=== PATIENT | female | born 1950 | race Caucasian/White ===

== ENCOUNTER → 2017-07-30 09:29 | Outpatient (CLI) | payer MEDICARE, OTHER, SELFPAY ==
--- NOTE | 2017-07-30 09:32 | RAD_ITS ---
STUDY: X-RAY - RIGHT KNEE REASON FOR EXAM: Female, 67 years old. Pain TECHNIQUE: 4 view(s) of the knee. COMPARISON: None. FINDINGS: There is demineralization of the visualized distal femur. There is demineralization of the tibia and fibula. Normal proximal tibiofibular articulation. There is severe degenerative arthrosis of the medial femorotibial compartment with severe joint space narrowing. There is mild degenerative arthrosis of the lateral femorotibial compartment. There is moderate degenerative arthrosis of the patellofemoral articulation. The soft tissue structures are unremarkable. RAD/Knee 4 or More Views IMPRESSION: Moderate to severe Degenerative arthrosis. No visualized fracture. Electronically Signed: Narda Tam MD at 17:34 EDT Tel , Service support ,
== END ==
PROVIDERS: Family Provider Family Medicine; PCP Family Medicine; Visit Provider Orthopaedic Surgery
DX: M25.561 Pain in right knee (principal)
CPT/HCPCS: 73564

== ENCOUNTER 2017-08-21 07:19 | Inpatient (IN) | payer MEDICARE, OTHER, SELFPAY ==
[2017-08-14 11:27] VITALS: BP 131/74; PULSE 69; RESP 16; TEMP 36.5; O2SAT 95; BMI 35.5
--- NOTE | 2017-08-14 11:31 | SDCEKG_ITS ---
Test Reason : Blood Pressure : / mmHG Vent. Rate : 068 BPM Atrial Rate : 068 BPM P-R Int : 122 ms QRS Dur : 070 ms QT Int : 368 ms P-R-T Axes : 047 010 024 degrees QTc Int : 391 ms Normal sinus rhythm Normal ECG Confirmed by EMILIO CHINCHILLA MD ([id number]), food editor STEPH ESTES ([id number]) on 08/16/2017 2:41:16 PM Referred By: Adan Bourne Confirmed By:EMILIO CHINCHILLA MD
[2017-08-14 12:17] LABS: Hematocrit 42.2 % (37-47); Hemoglobin 14.7 g/dl (12.0-15.0); Mean Corp Hgb Conc 34.8 g/gl (32-36); Mean Corpuscular Hgb 32.2 pg (27.0-32.0); Mean Corpuscular Volume 92.5 fL (81-99); Mean Platelet Vol. 9.8 fl (6.2-12.0); Platelet Count 233 K/mm3 (150-450); RBC Distribution Width CV 12.8 % (11.6-14.6); RBC Distribution Width SD 42.6 fl (35.1-43.9); Red Blood Count 4.56 M/mm3 (4.2-5.4); White Blood Count 5.5 K/mm3 (4.4-11.0)
[2017-08-14 12:18] LABS: Scan Indicated on CBC? Y/N NO
[2017-08-14 12:36] LABS: Prothrombin Time (Protime)PT. 13.1 SECONDS (11.7-14.9)
[2017-08-14 12:58] LABS: AST(SGOT) 20 U/L (15-37); Alanine Aminotransfer ALT/SGPT 30 U/L (13-56); Albumin, Serum 3.8 g/dL (3.2-5.0); Alkaline Phosphatase 79 U/L (45-117); Bilirubin, Direct 0.13 mg/dL (0.00-0.30); Globulin 3.7 g/dL (2.2-4.2); Protein, Total 7.5 g/dL (6.4-8.2)
[2017-08-21] VITALS (16 sets, daily range): BP systolic 106–142; BP diastolic 42–80; PULSE 77–100; RESP 16–21; TEMP 36.2–36.8; O2SAT 93–99; BMI 35.5; BMI 36.3
[2017-08-21] MEDS: oxyCODONE HCl Cr 10 MG Tablet PO ×2 (08:17→22:37)
[2017-08-21] MEDS: Celecoxib 200 MG Capsule PO (08:17)
--- NOTE | 2017-08-21 08:59 | RAD_ITS ---
STUDY: X-RAY - RIGHT KNEE REASON FOR EXAM: Female, 67 years old. Total knee replacement. TECHNIQUE: AP and lateral view(s) of the knee. COMPARISON: Comparison is made with prior study dated July 30, 2017. FINDINGS: Normal visualized distal femur. Normal visualized proximal tibia and fibula. Normal proximal tibiofibular articulation. The patient is status post total knee replacement. There is good alignment. Postoperative soft tissue changes. RAD/Knee 1 or 2 Views IMPRESSION: Total knee arthroplasty. There is good alignment. Postoperative soft tissue changes. Electronically Signed: Jose Khan MD at 14:27 EDT Tel [phone], Service support ,
--- NOTE | 2017-08-21 09:35 | KNEE_PTH ---
PATIENT: BEVERLEY LOUISE LOC: MS3 U#:[id number] AGE/SX: 67/F [place] [facility] [place]: Adan Bourne DO : 1950 BED: 1 DIS: 08/23/2017 SPEC #: [id number] RECD: 08/21/17 14:42 STATUS: RISA JESUS #: [id number] JUAN CARLOS: 08/21/17 09:[address]: Adan Bourne DEPT: SURGICAL PATHOLOGY RECD BY: Mendez Montes ENTERED: 08/21/17 14:42 SP TYPE: TOTAL KNEE OTHR DR: Dr. Anup Brooks MD Tissues: Knee, NOS Procedures: Decalcification bone/plaque Surgery Specimen Level IV HEADER OPERATION: Right total knee replacement PRE-OP DIAGNOSIS: Primary osteoarthritis of right knee, chronic pain of right knee TISSUE SUBMITTED: Right knee bone and soft tissue MICROSCOPIC DIAGNOSIS Right knee bone and soft tissue, total knee replacement: Pieces of bone with degenerative osteoarthritic changes. Fibroadipose tissue, fibroconnective tissue and reactive synovial tissue. SORAYA:alena 08/24/17 MICROSCOPIC DESCRIPTION Slides are reviewed. GROSS DESCRIPTION Received is one container designated bone and soft tissue right knee. The specimen consists of multiple fragments of sandoval-yellow bone measuring in aggregate 11 x 10 x 4 cm. Also in the specimen container are multiple fragments of yellow-white soft tissue measuring in aggregate 7 x 6.5 x 3 cm. A number of bony fragments contain articular surfaces consistent with tibial plateau and femoral condyle and displaying prominent osteophyte formation, eburnation and bone erosion. Warehouse Laborer sections are submitted in two cassettes as follows: 1 - soft tissue, 2 - bone after decalcification. / SORAYA:alena 08/21/17 TC:5 [facility]: [id number], [id number]
--- NOTE | 2017-08-21 10:03 | OP.PN_ITS ---
Immediate Post-Op Note Date of Procedure: 08/21/17 Primary Surgeon/Physician: Adan Bourne DO websphere commerce architect: Bulmaro Clinton Pre-Operative Diagnosis: Right knee osteoarthritis Post-Operative Diagnosis: Same as above Surgery/Procedure Performed:: Right total knee arthroplasty-[place] Description of Surgical Findings:: See dictation Estimated Blood Loss: 50 Specimen's removed: Bone cuts Type of Anesthesia:: General ASA Class: ASA1 Normal Healthy Patient - Admit VTE Documentation VTE Present on Admission: No VTE Mechan Device Prophylaxis: SCD's, Knee High ARANZA Hose VTE Pharm Prophylaxis ordered?: Yes
--- NOTE | 2017-08-21 10:04 | OP.PCM_ITS ---
Report of Operation Date of Procedure: 08/21/17 Pre-Operative Diagnosis: Right knee osteoarthritis Post-Operative Diagnosis: Same as above Surgery/Procedure Performed:: Right total knee arthroplasty-[place] abhijit Description of Surgical Findings:: 67-year-old female with recalcitrant right knee pain that failed nonoperative management to include NSAIDs activity modifications physical therapy and injections. Patient plain from radiograph showed tricompartmental arthrosis of the knees. Having failed conservative measures and pain with activities of daily living patient elected for operative intervention. She was counseled and consented for the aforementioned procedure. She is met in the holding area where the right lower extremity was marked and identified by the with surgeon. Patient was taken to the operating room in satisfactory condition with somewhat to place 25 patient operative procedure and limb. Patient received 900 clindamycin due to penicillin allergy and 1 g of TXA. Patient had a well- placed tourniquet the right proximal thigh. She was then prepped and draped in usual fashion. Right lower extremity was elevated Esmarch used for exsanguination and tourniquet was increased to 250 mmHg for roughly 60 minutes. Patient had a standard midline incision made 2 fingerbreadths above the patella down to the tibial tubercle with sharp dissection down to soft tissues and Bovie cautery 20 bleeding. Patient then underwent a standard medial parapatellar approach. Patient had a large return effusion. She had hypertrophic synovium to the suprasellar pouch which was mechanically resected. At that point time a standard posterior medial release was undertaken secondary to her varus knee with mild contracture. Anterior fat pad was resected. We then placed our intramedullary guide for a distal femoral cut of 10 mm again secondary to a flexion contracture. We used a 6? valgus cut. Standard cuts were performed. Then turned our attention to sizing. Patient sized to a size 5. Size 5 cutting guide was placed in standard cuts were performed without difficulty. We then turned our attention to the tibia. Tibial guide was placed using standard technique with 3? posterior slope. Appropriate mechanical axis identified and we took 2 mm off the medial side of the knee. This was done using standard technique. PCL was preserved. Leg was brought in a full extension remnant menisci were removed any soft tissue debris that were impeding identification. Then placed a 9 mm Estella. With excellent mechanical alignment full extension and stable at 0 30 and 90? of flexion with no flexion extension gaps. At that point time we then turned our attention to the patella the patella is overall thickness was roughly 22 mm. We took off 10 and the patient sized to a 38 patella button. Standard holes were then drilled. We then turned our attention back to the femur and tibia. Femoral component 5 was placed using standard technique and then a 5 tibial tray was placed with a 9 mm Estella. Appropriate rotation to the tibial component was seated and then keel punch placed after the femoral trial component had been removed. Again we had excellent mechanical alignment and stability in all ranges of motion. Trial components were then completely removed and the wound was copiously irrigated remove the excess debris. Cement was prepared on the back table and then the tibial component and femoral component was then impacted using standard technique and a 9 mm trial poly-placed while the cement cured. Patella button was also seated using standard technique. Upon curing I felt that a 9 mm CS Estella would be appropriate for this patient. Trial component was removed the wound was copiously irrigated and evaluated for any loose cement. Feeling the knee was clean we then injected with 60 cc of periarticular cocktail for postoperative pain management. We then placed a 9 mm CS Estella. Excellent mechanical alignment stability were noted. We had good patella tracking. At that point time the knee was then closed with the distal two thirds closed in 30 ? of knee flexion and the proximal extent closed in full extension. We used #1 FiberWire [id number] technique. The soft tissues were then reapproximated after the tourniquet had been let down with with 2-0 Vicryl running subicular Monocryl and Dermabond. A Silverlon dressing was then placed with the knee in 30? knee flexion using standard technique. I was scrubbed and available time during our procedure. We had no drains or complications. Implants included the triathlon system from [employer] 5 CR femur, 5 tibia, 9 mm CS Estella, and a 38 patella button. He should be admitted to floor for 24 hours of IV antibiotics appropriate IV and p.o. pain medication and DVT prophylaxis to include early aggressive range of motion and weightbearing SCDs teds and 325 p.o. twice daily of aspirin with GI prophylaxis. recorder gravity prospecting: Bulmaro Clinton Type of Anesthesia:: General Specimen's removed: Bone cuts Estimated Blood Loss (mL): 50 Grafts/Implants Used: Agustina triathlon 5/5/9cs,38 cemented - Complications None - Admit VTE Documentation VTE Present on Admission: No VTE Mechan Device Prophylaxis: SCD's, Knee High ARANZA Hose VTE Pharm Prophylaxis ordered?: Yes
[2017-08-21] MEDS: Clindamycin 900 MG/50 ML BAG 75 MG IV (10:05)
[2017-08-21 13:24] LABS: Anion Gap 9 (5-15); BUN 17 mg/dL (7-18); BUN/Creat Ratio 26.1 RATIO (10-20); Calcium,Total 8.1 mg/dL (8.5-10.1); Chloride 108 mmol/L (98-107); Creatinine, Serum 0.65 mg/dL (0.55-1.02); EST Glomerular Filtration Rate 96 mL/min (>60); Est Glom Filt Rate - Afr Amer 116 mL/min (>60); Estimated Creatinine Clearance 43.92 ml/min; Glucose 156 mg/dL (74-106); Potassium 3.8 mmol/L (3.5-5.1); Sodium Level 141 mmol/L (136-145)
[2017-08-21] MEDS: Ketorolac 15 MG/ML Vial IV (13:31)
[2017-08-21] MEDS: Albuterol 2.5 MG/3 ML VIAL.NEB. INHALATION ×2 (15:09→19:35)
[2017-08-21] MEDS: Clindamycin 600 MG/50 ML BAG 100 MG IV ×2 (15:43→22:37)
[2017-08-21] MEDS: Lactated Ringers 1,000 ML 75 ML IV (15:43)
[2017-08-21] MEDS: Aspirin 325 MG Tablet PO (15:44)
[2017-08-21] MEDS: Acetaminophen 500 MG Tablet 1000 MG PO ×2 (15:44→22:34)
[2017-08-21] MEDS: Famotidine 20 MG Tablet PO ×2 (15:44→22:33)
[2017-08-21] MEDS: Ondansetron 4 MG/2 ML Vial IV (16:53)
[2017-08-21] MEDS: Budesonide Respules 0.5 MG/2 ML AMPUL.NEB. INHALATION (19:35)
[2017-08-21] MEDS: Senna/Docusate Sodium 1 Tablet 2 TABLET PO (22:33)
[2017-08-22] VITALS (7 sets, daily range): BP systolic 97–130; BP diastolic 49–65; PULSE 81–99; RESP 16–18; TEMP 36.6–37.3; O2SAT 90–96
[2017-08-22] MEDS: Clindamycin 600 MG/50 ML BAG 100 MG IV (04:31)
[2017-08-22] MEDS: Acetaminophen 500 MG Tablet 1000 MG PO ×3 (05:56→22:49)
[2017-08-22] MEDS: Levothyroxine 25 MCG TABLET PO (05:56)
[2017-08-22 06:27] LABS: Hematocrit 32.8 % (37-47); Hemoglobin 11.3 g/dl (12.0-15.0); Mean Corp Hgb Conc 34.5 g/gl (32-36); Mean Corpuscular Hgb 32.5 pg (27.0-32.0); Mean Corpuscular Volume 94.3 fL (81-99); Mean Platelet Vol. 10.1 fl (6.2-12.0); Platelet Count 186 K/mm3 (150-450); RBC Distribution Width CV 12.8 % (11.6-14.6); RBC Distribution Width SD 42.8 fl (35.1-43.9); Red Blood Count 3.48 M/mm3 (4.2-5.4); White Blood Count 7.7 K/mm3 (4.4-11.0)
[2017-08-22 06:32] LABS: Anion Gap 6 (5-15); BUN 12 mg/dL (7-18); BUN/Creat Ratio 18.8 RATIO (10-20); Calcium,Total 7.9 mg/dL (8.5-10.1); Chloride 104 mmol/L (98-107); Creatinine, Serum 0.64 mg/dL (0.55-1.02); EST Glomerular Filtration Rate 98 mL/min (>60); Est Glom Filt Rate - Afr Amer 119 mL/min (>60); Estimated Creatinine Clearance 43.92 ml/min; Glucose 93 mg/dL (74-106); Potassium 3.5 mmol/L (3.5-5.1); Sodium Level 138 mmol/L (136-145)
[2017-08-22 06:50] LABS: Scan Indicated on CBC? Y/N NO
[2017-08-22] MEDS: Budesonide Respules 0.5 MG/2 ML AMPUL.NEB. INHALATION (06:55)
[2017-08-22] MEDS: Albuterol 2.5 MG/3 ML VIAL.NEB. INHALATION (06:55)
[2017-08-22] MEDS: Aspirin 325 MG Tablet PO ×2 (07:39→16:17)
[2017-08-22] MEDS: Senna/Docusate Sodium 1 Tablet 2 TABLET PO ×2 (07:39→22:10)
[2017-08-22] MEDS: Famotidine 20 MG Tablet PO ×2 (07:39→22:10)
--- NOTE | 2017-08-22 07:51 | PCM.PN.ORT ---
Subjective: Postop day 1 status post right total knee arthroplasty. Patient states he feels a little woozy and may be from the medication. Otherwise she is sitting at the edge of the bed with her knee flexed 90? getting ready to eat breakfast. Patient has been up to the bathroom. No other major issues reported overnight. No other fevers chills nausea vomiting chest pain or shortness of breath. - Physical Exam General: Alert, Oriented x3, Cooperative, No apparent distress Musculoskeletal: - - Distally neurovascular intact. No calf pain negative Homans. ARANZA hose SCDs in place. No expanding hematoma. Lab values reviewed and stable. Hardware well seated well-placed. Vital Signs Temp Pulse Resp BP Pulse Ox 98 F 90 16 97/49 L 94 08/22/17 07:33 08/22/17 07:33 08/22/17 07:33 08/22/17 07:33 08/22/17 07:33 Oxygen Flow Rate (L/min) 2 Oxygen Delivery Method Room Air Weight: 205 lb 7.533 oz Body Mass Index (BMI) 36.3 Intake and Output for Last 24 Hours 08/20/17 08/21/17 08/22/17 23:59 23:59 23:59 Intake Total 1153 / 1153 1393 / 1393 Output Total 600 / 600 Balance 553 / 553 1393 / 1393 Laboratory Tests Past 24 Hrs 08/21/17 08/22/17 08/22/17 13:00 05:10 05:10 WBC 7.7 RBC 3.48 L Hgb 11.3 L Hct 32.8 L MCV 94.3 MCH 32.5 H MCHC 34.5 RDW 12.8 RDW Differential 42.8 Plt Count 186 MPV 10.1 Sodium 141 138 Potassium 3.8 3.5 Chloride 108 H 104 Carbon Dioxide 24.0 28.0 Anion Gap 9 6 BUN 17 12 Creatinine 0.65 0.64 Estim Creat Clear Calc 43.92 43.92 Est GFR (MDRD) Af Amer 116 119 Est GFR (MDRD) Non-Af 96 98 BUN/Creatinine Ratio 26.1 H 18.8 Glucose 156 H 93 Calcium 8.1 L 7.9 L Medical Necessity - Tobacco Use Smoking Status: Never smoker Assessment/Plan Assessment: After orthopedics status post right total knee arthroplasty for osteoarthritis doing well. Plan: This point time and will hold her OxyContin and continue with the OxyIR every 4-6 hours as needed for pain. I will write for a 500 cc bolus of fluids and proceed from there. If the patient's feeling better later today and she desires to go home I will discharge her otherwise anticipate discharge home tomorrow. I believe the patient would like to be evaluated for possible home health. Await case fitter evaluation for approval. Otherwise will start outpatient physical therapy. Any major issues please contact.
[2017-08-22] MEDS: Lactated Ringers 500 ML 999 ML IV (08:28)
--- NOTE | 2017-08-22 09:30 | CASEMGMT ---
ALINE BOOGIE Face to Face with patient for initial transition planning/care coordination assessment. RN CM introduced self and role at [facility]. Patient lying in bed, alert and oriented. Patient willing to participate in assessment and is able to answer all questions appropriately. Care providers, pharmacy, and demographics verified. See link attached. Patient wishes to discharge home with [facility] with [facility]. Patient states she has no further needs or concerns at this time. RN CM sent referral to [facility] and they are able to accept the patient. CM to follow for discharge planning needs that may arise. Disposition Plan: Patient to discharge home with [facility], family support, and follow-up plans in place.
[2017-08-22] MEDS: traMADol 50 MG Tablet PO (12:03)
[2017-08-22] MEDS: oxyCODONE 5 MG Tablet 10 MG PO ×2 (15:20→22:14)
[2017-08-23 02:00] VITALS: BP 128/60; PULSE 87; RESP 16; TEMP 37.1; O2SAT 94
[2017-08-23 05:52] LABS: Hematocrit 34.9 % (37-47); Hemoglobin 12.1 g/dl (12.0-15.0); Mean Corp Hgb Conc 34.7 g/gl (32-36); Mean Corpuscular Hgb 32.6 pg (27.0-32.0); Mean Corpuscular Volume 94.1 fL (81-99); Mean Platelet Vol. 9.8 fl (6.2-12.0); Platelet Count 189 K/mm3 (150-450); RBC Distribution Width CV 13.1 % (11.6-14.6); RBC Distribution Width SD 43.5 fl (35.1-43.9); Red Blood Count 3.71 M/mm3 (4.2-5.4); White Blood Count 6.5 K/mm3 (4.4-11.0)
[2017-08-23] MEDS: Levothyroxine 25 MCG TABLET PO (05:56)
[2017-08-23 05:59] LABS: Scan Indicated on CBC? Y/N NO
[2017-08-23] MEDS: oxyCODONE 5 MG Tablet 10 MG PO ×2 (06:03→13:50)
[2017-08-23 06:11] LABS: BUN 7 mg/dL (7-18); Creatinine, Serum 0.68 mg/dL (0.55-1.02); Estimated Creatinine Clearance 43.92 ml/min; Glucose 103 mg/dL (74-106)
[2017-08-23 06:12] LABS: Anion Gap 8 (5-15); BUN/Creat Ratio 10.4 RATIO (10-20); Calcium,Total 8.3 mg/dL (8.5-10.1); Chloride 106 mmol/L (98-107); EST Glomerular Filtration Rate 92 mL/min (>60); Est Glom Filt Rate - Afr Amer 111 mL/min (>60); Potassium 3.5 mmol/L (3.5-5.1); Sodium Level 142 mmol/L (136-145)
[2017-08-23] MEDS: Acetaminophen 500 MG Tablet 1000 MG PO (06:58)
[2017-08-23] MEDS: Senna/Docusate Sodium 1 Tablet 2 TABLET PO (07:31)
[2017-08-23] MEDS: Aspirin 325 MG Tablet PO (07:31)
[2017-08-23] MEDS: Famotidine 20 MG Tablet PO (07:31)
[2017-08-23 07:34] VITALS: BP 115/66; PULSE 94; RESP 16; TEMP 37.3; O2SAT 92
--- NOTE | 2017-08-23 10:29 | PCM.DC.TKR ---
Discharge Activity: Return to Normal Activity, May not drive while taking narcotic pain medications., May Shower, Use Walker May shower in (days): 2 May resume sexual activity in: No Restrictions Ice area for (Minutes): 20 Weight Bearing Status: Weight bearing as tolerated Elevate: Right Leg Call your doctor if your incision/area has: Continuous Slow Oozing, Sudden Increased Bleeding, Increased Pain/ Swelling, Increased Redness, Foul Smelling Discharge, Swelling at the incision site Call your doctor if you observe: Fever of 101 or Higher, Coldness, Increased Pain, Numbness or Tingling, Change in Color, Inability to urinate, Inability to have a bowel movement, Using more than one pad per hour, Shortness of breath, Dizziness, Fainting spells, Swelling in the ankles, Chest pain, Prolonged hiccoughing, Increased palpitations (irregular heartbeat), Calf discomfort, Uncontrolled pain Suture Line Care: Avoid Pulling/Pushing, Avoid Pinching/Bending Change Dressing in (Days):: 5 Remove Dressing in (days):: 5 Cleanse incision/area with: Soap & Water Additional Dressing/Incision Instructions:: Replace dressing in 5 days. May shower. Watch hands prior to touching wound. Allergies/Adverse Reactions: Allergies Penicillins Allergy (Verified 08/14/17 11:09) Rash Medications to take at Discharge cholecalciferol (vitamin D3) 1,000 unit capsule 1,000 unit PO DAILY 07/30/17 coenzyme Q10 200 mg capsule 200 mg PO DAILY 07/30/17 docosahexanoic acid (dha)-epa 120 mg-180 mg capsule 1 cap PO DAILY 07/30/17 levothyroxine 25 mcg capsule 25 mcg PO DAILY 07/30/17 lysine 500 mg tablet 500 mg PO DAILY 07/30/17 vitamin B complex tablet 1 tab PO DAILY 07/30/17 Albuterol Inhaler [Ventolin Hfa] 1 - 2 puff INHALATION Q4H PRN PRN 08/14/17 Mometasone/Formoterol [Dulera 200 Mcg/5 Mcg Inhaler] 2 puff IH BID 08/14/17 Tyrone-3 Fatty Acids/Fish Oil [Fish Oil 1,000 mg Capsule] 1 each PO DAILY 08/14/17 Vitamin E 400 unit PO DAILY 08/14/17 Aspirin E.C. [Ecotrin] 325 mg PO BID #30 tablet 08/23/17 Docusate Sodium [Colace] 100 mg PO BID PRN PRN #10 capsule 08/23/17 Famotidine [Pepcid] 40 mg PO DAILY #30 tablet 08/23/17 Oxycodone HCl/Acetaminophen [Percocet 5/325] 1 - 2 tablet PO Q4H PRN PRN #60 tablet 08/23/17 proMETHazine tablet [Phenergan] 25 mg PO Q4H PRN PRN #10 tablet 08/23/17 The following prescriptions were given: Oxycodone HCl/Acetaminophen [Percocet 5/325] 1 - 2 tablet PO Q4H PRN PRN #60 tablet PRN Reason: Pain proMETHazine tablet [Phenergan] 25 mg PO Q4H PRN PRN #10 tablet PRN Reason: Nausea Docusate Sodium [Colace] 100 mg PO BID PRN PRN #10 capsule PRN Reason: Constipation Famotidine [Pepcid] 40 mg PO DAILY #30 tablet Aspirin E.C. [Ecotrin] 325 mg PO BID #30 tablet Primary Care Physician: Anup Brooks [Primary Care Provider] - Please Follow Up With: Adan Bourne DO When: call [facility] for appt for 2 weeks Proposed Discharge Date: 08/23/17
[2017-08-23 10:57] VITALS: BP 115/66; PULSE 95; RESP 16; TEMP 36.8; O2SAT 95
--- NOTE | 2017-08-23 13:08 | PCM.DC.BLA ---
Discharge Summary Date of Admission: 08/21/17 Date of Discharge: 08/23/17 Summary: 67-year-old female status post right total knee arthroplasty. No issues during stay. Patient was admitted to the floor for 24 hours of IV antibiotics appropriate IV and p.o. pain medication. Patient had DVT prophylaxis to include SCDs teds and 325 p.o. twice daily of aspirin with GI prophylaxis. Patient tolerated regular diet. Patient was amatory physical therapy performing well in physical therapy sessions and meeting right criteria for home health. Assessment: [facility] status post right total knee arthroplasty for osteoarthritis. Doing well. Plan: Patient be discharged home and start home health until transitioning to outpatient physical therapy. Patient will continue with DVT prophylaxis to include ARANZA hose early aggressive range of motion and 325 p.o. twice daily of aspirin with GI prophylaxis ?14 total days. Patient may shower at this time. Wound is not to be submerged. Patient will follow me in 2 weeks for range of motion check. Any major issues please contact me.
--- NOTE | 2017-08-23 13:35 | CASEMGMT ---
RN KEAGAN met with patient and updated that [facility] did accept patient and would be calling to set-up time for start of care. Randa with [facility] notified patient will be discharged today and given F2F, as well as H/P faxed. Farhana Cosme BSN, RN-BC, CCM
== END 2017-08-23 13:50 | disposition home health service (06) | DRG 470 ==
LOC: ACINP 07:20 → MS3 07:52
PROVIDERS: Anesthesiology; Admitting Provider Orthopaedic Surgery; Family Provider Family Medicine; PCP Family Medicine; Visit Provider Orthopaedic Surgery
PROC: (CPT 27447; principal; 2017-08-21 09:10)
DX: M17.11 Unilateral primary osteoarthritis, right knee (principal); G89.29 Other chronic pain; J45.909 Unspecified asthma, uncomplicated; Z96.642 Presence of left artificial hip joint; Z79.82 Long term (current) use of aspirin; Z79.899 Other long term (current) drug therapy; Z78.0 Asymptomatic menopausal state; Z88.0 Allergy status to penicillin
CPT/HCPCS: 36415; 73560; 80048; 80076; 84443; 85027; 85610; 85730; 87081; 88305; 88311; 94640; 97110; 97116; 97162; 97165; 97530; 97535; 97802; J7030; J7120; J2405

== ENCOUNTER → 2017-10-01 09:13 | Outpatient (CLI) | payer MEDICARE, OTHER, SELFPAY ==
--- NOTE | 2017-10-01 09:16 | RAD_ITS ---
STUDY: X-RAY - RIGHT KNEE REASON FOR EXAM: Female, 67 years old. Total knee replacement. TECHNIQUE: 4 view(s) of the knee. COMPARISON: Comparison is made with prior examination dated August 21, 2017. FINDINGS: Normal visualized distal femur. Normal visualized proximal tibia and fibula. Normal proximal tibiofibular articulation. The patient is status post total knee replacement. There is good alignment. Persistent postoperative soft tissue swelling and small joint effusion. RAD/Knee 4 or More Views IMPRESSION: Total knee replacement. There is good alignment. Postoperative soft tissue changes. Electronically Signed: Jose Khan MD at 15:53 EDT Tel [phone], Service support ,
== END ==
PROVIDERS: Family Provider Family Medicine; PCP Family Medicine; Visit Provider Orthopaedic Surgery
DX: M25.561 Pain in right knee (principal)
CPT/HCPCS: 73564

== ENCOUNTER 2017-10-22 08:30 | Outpatient (RCR) | payer MEDICARE, OTHER, SELFPAY ==
--- NOTE | 2017-09-25 10:57 | HP.PTEVAL_ITS ---
Patient's Visit Information BEVERLEY LOUISE is a 67 year old F referred to Physical Therapy by Adan Bourne DO with a diagnosis of R TKA early August. Date of Evaluation: 09/25/17 Physical Therapist: POONAM StanfordT, OC - Visit Plan Frequency: 2x /Week Duration: 4-6 Weeks Plan: 2x/week for 4 weeks,. patellar mobs and scar massage. ROM R knee. gait training and progression to outdoor and no cane, transfer off floor. Strengthening ex patient can eventually do at home with pics and instruct. ice as needed. - Subjective Subjective: R TKA [address] Bourne. H/o L TKA and KANA. Had OA in R knee and it hurt for a long time. Had home health for two weeks and been exercising at home since then. Pain level is not terrible and is aat 2-3/10 most of time. Some days it does not hurt. Using cane out and about but not at home in the house. Needs it on uneven ground. Sleep is interrupted due to spasms in R leg. Doctor gave prescription whicch helps but doesn't feel good the next day so not taking it. HEP: HS, QS, LAG, SLR mostly lying and sitting. Basic ADLs are Ok, lives with in two story on one floor and washer and dryer in basement and using cane on steps. 5 steps to enter with railing x 2. Not employed, retired from [employer]. Spends day with [employer]. Enjoys gardening. Can't get up off ground she does not think. - Pain R knee Pain Intensity (Out of 10): 0 Pain Intensity Range: 0, 3 - Objective 0-105 R knee AROM, 0-125 L. 90 R knee flexion in prone. Slightly swollen R vs l, No unusual redness heat or swelling. Walks with good heel to toe gait pattern, slight R antalgia. Steps are babying R but can do up reciprocally with one rail and needs two rails and turns sideways to come down using R. Trasnfers to and fro sit and supine I. Rolling is laborious but I. strength R knee 4-, hip 3+, and ankle 4+, L knee 4+, hip 4- and ankle 4+. Many varicosities in both LE R>L. Sensation WNL to gross light touch B LE. - Balance Scores Functional Gait Assessment Score: 24 % Disability: 20.0000 - Goals Goal 1:: Sleep without interruption Goal Time Frame: 2-4 Weeks Goal 2:: AROM R knee 0-120 to make steps reciprocal with one rail. Goal Time Frame: 2-4 Weeks Goal 3:: Get up off floor I. Goal Time Frame: 2-4 Weeks Goal 4:: I approp ex to minimize future problems. Goal Time Frame: 2-4 Weeks Goal 5:: Walk without gait deviations without AD on grass. Goal Time Frame: 2-4 Weeks - Rehabilitation Potential Physical Therapy Diagnosis: R TKA, Rehabilitation Potential: Good - Anticipated Interventions Patient/Client Instruction: Educate patient on: Condition, Plan of Care For the Purpose of:: To decrease pain, To decrease swelling/inflammation, To increase ROM, To improve performance and independence with ADL's, To improve ability of physical actions for home/community/work/leisure Therapeutic Exercise to Include: Strength training, Flexibilty training, Gait and locomotor training, Passive ROM, Active ROM For the Purpose of:: To decrease pain, To decrease swelling/inflammation, To increase ROM, To improve ability of physical actions for home/community/work/ leisure, To improve gait and locomotor functions Manual Therapy Techniques to Include: Scar massage, Mobilization For the Purpose of:: To decrease pain, To increase ROM Cryotherapy (ice pack, ice massage): Yes For the Purpose of:: To decrease pain, To decrease swelling/inflammation Thank you for the opportunity to evaluate your patient. For Medicare and Medicare HMO plans, please review the plan of care and approve it. It will need to be FAXED BACK to us at [phone] for Medicare purposes. Please let me know if there are questions or concerns regarding this plan of care. Physician Signature: Date:
--- NOTE | 2017-10-22 08:30 | DT_ITS ---
This patient was seen during an EMR downtime October 22, 2017 - October 29, 2017. This patient may have a combination of paper and electronic documentation or all paper documentation. All documentation is viewable within the e-chart portion of [employer] for each patient visit.
--- NOTE | 2017-10-30 12:38 | HP.PTDCSUM ---
HP - PT D/C Summary It has been my pleasure to treat BEVERLEY LOUISE under orders from Adan Bourne DO, for the diagnosis of R TKA early August for a total of 9 visit(s). Discharge Date: 10/30/17 Please see the following information for a summary of their discharge status. - Subjective Subjective: Last visit. No pain. Mild discomfort intermittently anterior R knee. Up at night sometimes with knee. Basic ADLs are OK. 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 Took basket down steps with rail.Doing HEP 2x/day including elliptical. - Pain R knee Pain Intensity (Out of 10): 0 - Overall Improvement % Improvement: 90 - Objective Objective/Function: This info entered wella fter the eval from paper eval due to computer downtime procedures.. Gait is normal, steps are reciprocal with one rail. AROM 0-120. Strength 4+/5 in knee flexion ext. - Goals Goal 1:: Sleep without interruption Goal Progress: Progressing Goal 2:: AROM R knee 0-120 to make steps reciprocal with one rail. Goal Progress: Goal Met Goal 3:: Get up off floor I. Goal Progress: not tested Goal 4:: I approp ex to minimize future problems. Goal Progress: Goal Met Goal 5:: Walk without gait deviations without AD on grass. Goal Progress: sbjectively met. - Plan Plan: D/C - D/C Information Discharge Comments: Doing well and will continue via HEP(her choice) If there are questions or concerns regarding this patient's physical therapy, please feel free to call me at [phone]. Thank you for the referral of this patient. Sincerely, Zane Palma, DPT, OC
== END 2017-10-22 19:00 | disposition home or self-care (01) ==
LOC: PT 08:30
PROVIDERS: Family Provider Family Medicine; PCP Family Medicine; Visit Provider Orthopaedic Surgery
DX: Z96.651 Presence of right artificial knee joint (principal)
CPT/HCPCS: 97110; 97162; 97530

== ENCOUNTER 2022-05-08 11:16 | Outpatient (CLI) | payer MEDICARE, OTHER, SELFPAY ==
[2022-05-08 16:03] LABS: Hepatitis B Surface Antibody Non-Reactive
[2022-05-10 08:10] LABS: HEPATITIS B SURFACE AG Negative (Negative); Hep C Antibodies 0.1 s/co ratio (0.0-0.9); Hepatitis A IgM Antibody Negative (Negative); Hepatitis B Core AB IgM Negative (Negative)
[2022-05-10 14:03] LABS: Hepatitis A AB, Total Negative (Negative)
== END 2022-05-08 23:59 | disposition home or self-care (01) ==
LOC: MTLAB 11:21
PROVIDERS: PCP Family Medicine; Referring Provider Dermatology Pediatric Dermatology; Visit Provider Dermatology Pediatric Dermatology
DX: L82.1 Other seborrheic keratosis (principal); L81.4 Other melanin hyperpigmentation; D22.5 Melanocytic nevi of trunk; Z71.89 Other specified counseling; L57.8 Other skin changes due to chronic exposure to nonionizing radiation; L72.0 Epidermal cyst; D23.71 Other benign neoplasm of skin of right lower limb, including hip; I83.93 Asymptomatic varicose veins of bilateral lower extremities; L30.9 Dermatitis, unspecified; Z09 Encounter for follow-up examination after completed treatment for conditions other than malignant neoplasm; Z87.2 Personal history of diseases of the skin and subcutaneous tissue
CPT/HCPCS: 36415; 80074; 86706; 86708

== ENCOUNTER → 2023-04-05 | Outpatient (CLI) | payer MEDICARE, OTHER, SELFPAY ==
--- NOTE | 2023-04-05 07:02 | EKG12_ITS ---
Test Reason : PRE OP Blood Pressure : / mmHG Vent. Rate : 070 BPM Atrial Rate : 070 BPM P-R Int : 118 ms QRS Dur : 068 ms QT Int : 360 ms P-R-T Axes : 054 011 025 degrees QTc Int : 388 ms Normal sinus rhythm with sinus arrhythmia Low voltage QRS Borderline ECG Confirmed by RENÉE NAILS, EMILIO ([id number]), editor house organ VANIA CORNELIUS ([id number]) on 04/11/2023 12:17:17 PM Referred By: Zac Linda Confirmed By:EMILIO CHINCHILLA MD
[2023-04-05 08:00] LABS: Absolute Lymphocyte Count 2.44 X10^3/uL (0.83-4.51); Absolute Neutrophil Count 2.3 X10^3/uL (2.0-7.7); Basophil# 0.03 X10^3/uL; Basophil% 0.6 % (0-1); Eosinophil# 0.11 X10^3/uL; Eosinophils% 2.1 % (0-5); Hemoglobin 13.3 g/dL (12.0-15.0); Lymphocyte # 2.44 X10^3/ul (0.83-4.51); Lymphocyte % 45.9 % (19-41); Mean Corp Hgb Conc 33.3 g/dL (32-36); Mean Corpuscular Hgb 31.7 pg (27.0-32.0); Mean Corpuscular Volume 95.2 fL (81-99); Mean Platelet Vol. 9.5 fl (6.2-12.0); Monocyte# 0.44 X10^3/uL; Monocyte% 8.3 % (0-10); NRBC Flagged by Analyzer 0 % (0-5); Neutrophil # 2.28 X10^3/uL (2.7-7.7); Neutrophil % 42.7 % (47-70); Platelet Count 242 K/mm3 (150-450); RBC Distribution Width CV 12.4 % (11.6-14.6); RBC Distribution Width SD 43.1 fl (35.1-43.9); White Blood Count 5.3 K/mm3 (4.4-11.0)
[2023-04-05 08:34] LABS: Albumin, Serum 3.6 g/dL (3.2-5.0); Anion Gap 4 (5-15); BUN 21 mg/dL (7-18); BUN/Creat Ratio 27.1 RATIO (10-20); Calcium,Total 8.9 mg/dL (8.5-10.1); Chloride 106 mmol/L (98-107); Creatinine, Serum 0.77 mg/dL (0.55-1.02); EST Glomerular Filtration Rate 77 mL/min (>60); Est Glom Filt Rate - Afr Amer 93 mL/min (>60); Glucose 110 mg/dL (74-106); Potassium 3.9 mmol/L (3.5-5.1); Sodium Level 139 mmol/L (136-145)
== END | disposition home or self-care (01) ==
PROVIDERS: PCP Internal Medicine; Referring Provider Specialist; Visit Provider Specialist
DX: Z01.818 Encounter for other preprocedural examination (principal); E07.9 Disorder of thyroid, unspecified; J45.909 Unspecified asthma, uncomplicated; Z01.810 Encounter for preprocedural cardiovascular examination; Z79.890 Hormone replacement therapy
CPT/HCPCS: 36415; 80048; 82040; 85025; 87081; 93005